=== PATIENT | male | born 1940 | race Caucasian/White ===

== ENCOUNTER 2023-03-02 13:25 | Emergency (ER) | payer MEDICARE, OTHER ==
[2023-03-02 13:48] VITALS: BP 149/75; TEMP 97.9
[2023-03-02] MEDS ORDERED: Haldol 5 MG IV ONE (14:06)
[2023-03-02] MEDS ORDERED: Haldol 5 MG ONE (14:15)
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
[2023-03-02 14:23] LABS: Appearance Clear (Clear); Bacteria None Seen /HPF (None Seen); Bilirubin Negative (Negative); Blood Negative (Negative); Epithelial Cells None Seen /HPF (None Seen); Glucose, Urine Negative (Negative); Hyaline Casts NONE SEEN /LPF (0-2); Ketones Negative (Negative); Leukocyte Esterase Trace (Negative); Nitrite Negative (Negative); Protein,Urine Dip Negative (Negative); RBC 0-2 /HPF (0-5); WBC 0-2 /HPF (0-5)
[2023-03-02 14:24] LABS: ADD URINE CULTURE? NO (NO)
[2023-03-02 14:25] LABS: Absolute Neutrophil Ct (ANC) 4.77 x10^3/uL (1.4-6.9); BASOPHIL % 0.9 % (0.0-0.4); Basophil (Absolute #) 0.07 x10^3/uL (0-0.4); Eosinophil % 1.5 % (0.00-5.0); Eosinophil (Absolute #) 0.11 x10^3/uL (0-0.5); Hematocrit 47.5 % (42-50); Hemoglobin 15.3 g/dL (12.5-18.0); IMMATURE GRAN # 0.02 x10^3u/L (0.00-0.03); IMMATURE GRAN % 0.3 % (0.00-0.4); Lymphocyte (Absolute #) 1.73 x10^3/uL (1.0-4.6); Mean Cell Volume 97.7 fL (78-100); Mean Corpuscular Hemoglobin 31.5 pg (26-32); Mean Corpuscular Hgb Concent. 32.2 g/dL (32-36); Mean Platelet Volume 10.2 fL (7.5-11.0); Monocyte (Absolute #) 0.82 x10^3/uL (0.0-1.3); Monocytes % 10.9 % (0.0-12.0); Neutrophil % 63.4 % (36.0-66.0); Platelet Count 207 x10^3/uL (150-450); Red Blood Count 4.86 x10^6/uL (4.1-5.6); Red Cell Distribution Width 13.4 % (11.5-14.0); White Blood Count 7.5 x10^3/uL (4.0-10.5)
[2023-03-02 14:36] LABS: ANION GAP 10.1 MEQ/L (5-15); Calcium 9.1 mg/dL (8.4-10.2); Creatinine 1 0.88 mg/dL (0.66-1.25); EST GLOMERULAR FILTRATION RATE 86.4 ML/MIN; Potassium 3.7 mmol/L (3.5-5.1); Total Protein 7.6 g/dL (6.3-8.2)
--- NOTE | 2023-03-02 15:33 | XRAY ---
CLINICAL HISTORY:[facility] COMPARISON:06/20/2022 TECHNIQUE:CT scan of the brain without contrast administration. Images were acquired in axial cuts with coronal and sagittal reformation. FINDINGS: Age-matched central and cortical involutional brain changes as evident by prominent cortical sulci, widened basal cisterns, and mild ventricular dilatation. Deep white matter chronic ischemia as evident by exaggerated white matter hypodensity. No CT evidence of acute infarction. No shift of the midline structures. No evidence of intra or extra axial recent hematoma. Normal appearance of the posterior fossa structures including the brainstem and cerebellum. Bone window settings showed no evidence of fractures or destructive lesions. IMPRESSION: 1. No evidence of acute infarction or recent hemorrhage. 2. Age-matched involutional brain changes and deep white matter chronic microvascular ischemia. Stable findings when compared with prior study. Electronically Signed by: El Hendricks MD. (03/02/2023 15:28:31 EST)
[2023-03-02 16:09] VITALS: PULSE 71; RESP 16
[2023-03-02 16:18] VITALS: O2SAT 95
== END 2023-03-02 17:13 | disposition home or self-care (01) ==
LOC: ED 13:25
DX: G30.1 Alzheimer's disease with late onset (principal); F02.B11 Dementia in other diseases classified elsewhere, moderate, with agitation; E78.5 Hyperlipidemia, unspecified; I10 Essential (primary) hypertension; Z79.899 Other long term (current) drug therapy
CPT/HCPCS: 36415; 70450; 80053; 81001; 83880; 85025; 96374; 99283; J1630

== ENCOUNTER 2023-06-08 14:28 | Emergency (ER) | payer MEDICARE, OTHER ==
--- NOTE | 2023-06-08 14:33 | ERPHSYRPT ---
- History of Present Illness Time Seen by Provider: 06/08/23 14:33 Source: patient, family, EMS Exam Limitations: clinical condition Physician History: This is an 82-year-old white male patient who presents to the emergency department by the operations plant attendant service for low room air oxygen saturation level 90%. The paramedics were called out to the house for lift assistance. The patient's spouse, called the paramedics out for herself. However after they assisted in lifting, she was concerned that the patient was having shortness of breath. He does use oxygen. He has significant dementia and does not always wear his oxygen. The paramedics brought the patient to the emergency department for evaluation management of low oxygen saturation levels. On arrival to the emergency department, the room air oxygen saturation level was 93%. The patient did not appear to be in any distress. He does not know why he is here in the emergency department. He has no complaints of shortness of breath or pain. Patient has a history of hypertension, hyperlipidemia and dementia. Additional, independent history was obtained from the paramedics as well as patient's family member. Timing/Duration: today Severity: mild Associated Symptoms: denies symptoms Allergies/Adverse Reactions: No Known Drug Allergies Allergy (Unverified 03/02/23 13:48) Home Medications: Amlodipine Besylate 10 mg PO DAILY 03/02/23 [History] Cyanocobalamin (Vitamin B-12) [Vitamin B-12] 2,500 mcg SL DAILY 03/02/23 [History] Donepezil HCl [Aricept] 5 mg PO DAILY 03/02/23 [History] Lisinopril 10 mg [Zestril 10 MG] 10 mg PO DAILY 03/02/23 [History] Melatonin 10 mg PO HS 03/02/23 [History] Memantine HCl 10 mg PO BID 03/02/23 [History] PARoxetine HCL [Paxil] 20 mg PO DAILY 03/02/23 [History] Docusate Sodium 100 mg [Docusate Sodium 100 MG] 100 mg PO BID 06/08/23 [History] risperiDONE [Risperidone] 1 mg PO BID 06/08/23 [History] Hx Tetanus, Diphtheria Vaccination/Date Given: (unknown) Hx Influenza Vaccination/Date Given: (unknown) Travel Risk - International Travel Have you traveled outside of the country in past 3 weeks: No - Emerging Infectious Disease Are you exhibiting symptoms associated with any current EIDs: No - Review of Systems Constitutional: No Symptoms Eyes: No Symptoms Ears, Nose, & Throat: No Symptoms Respiratory: No Symptoms Cardiac: No Symptoms Abdominal/Gastrointestinal: No Symptoms Genitourinary Symptoms: No Symptoms Musculoskeletal: No Symptoms Skin: No Symptoms Neurological: No Symptoms Psychological: No Symptoms Endocrine: No Symptoms Hematologic/Lymphatic: No Symptoms Immunological/Allergic: No Symptoms All Other Systems: Reviewed and Negative - Past Medical History Pertinent Past Medical History: Yes Neurological History: Dementia Cardiac History: High Cholesterol, Hypertension Psycho-Social History: Depression - Past Surgical History Past Surgical History: Yes Gastrointestinal: Cholecystectomy Other Surgical History: kidney stone removal - Social History Smoking Status: Never smoker Exposure to second hand smoke: No Drug Use: none Patient Lives Alone: No - Nursing Vital Signs Nursing Vital Signs: Initial Vital Signs Blood Pressure 154/65 06/08/23 14:30 O2 Sat by Pulse Oximetry 93 L 06/08/23 14:30 Pain Scale Pain Intensity 0 - Physical Exam General Appearance: no apparent distress, alert Eye Exam: PERRL/EOMI, eyes nml inspection Ears, Nose, Throat Exam: normal ENT inspection, moist mucous membranes Neck Exam: normal inspection, non-tender, supple, full range of motion Respiratory Exam: normal breath sounds, lungs clear, airway intact, No chest tenderness, No respiratory distress Cardiovascular Exam: regular rate/rhythm, normal heart sounds, normal peripheral pulses Gastrointestinal/Abdomen Exam: soft, normal bowel sounds, No tenderness Rectal Exam: not done Back Exam: normal inspection, normal range of motion, No CVA tenderness, No vertebral tenderness Extremity Exam: normal inspection, normal range of motion, pelvis stable Neurologic Exam: alert, oriented x 3 (Patient is oriented to self. He is not oriented to location or time), cooperative, financial institution treasurer II-XII nml as tested, normal mood/affect, nml cerebellar function, nml station & gait Skin Exam: normal color, warm, dry Lymphatic Exam: adenopathy SpO2 Interpretation: normal O2 Delivery: Room Air - Course Nursing assessment & vital signs reviewed: Yes EKG Interpreted by Me: RATE (71), Sinus Rhythm, NORMAL AXIS, NORMAL INTERVALS, NORMAL QRS, NORMAL ST-T, Other (No acute ischemic changes on today's twelve-lead EKG.) Ordered Tests: Active Orders 24 hr Category Date Time Status Marketing Coordinator STAT Care 06/08/23 14:34 Active EKG-ER Only STAT Care 06/08/23 14:33 Active IV Insertion STAT Care 06/08/23 14:33 Active HEAD WITHOUT CONTRAST [CT] Stat Exams 06/08/23 16:55 Taken BLOOD CULTURE Stat Lab 06/08/23 15:17 Received CBC W DIFF Stat Lab 06/08/23 15:00 Completed CMP Stat Lab 06/08/23 15:00 Completed NT PRO BNPII Stat Lab 06/08/23 15:00 Completed TROPONIN Q4H Lab 06/08/23 15:00 Completed TROPONIN Q4H Lab 06/08/23 18:45 Completed TROPONIN Q4H Lab 06/08/23 22:45 Ordered Medication Summary Discontinued Medications Generic Name Dose Route Start Last Admin Trade Name Freq PRN Reason Stop Dose Admin Acetaminophen 650 mg 06/08/23 16:47 06/08/23 16:55 Acetaminophen 325 Mg Tablet PO 06/08/23 16:48 650 mg STAT ONE Administration Acetaminophen Confirm 06/08/23 16:52 Acetaminophen 325 Mg Tablet Administered 06/08/23 16:53 Dose 650 mg .ROUTE .STK-MED ONE Potassium Chloride 20 meq 06/08/23 15:55 06/08/23 16:15 Potassium Chloride Tab 10 Meq Tab PO 06/08/23 15:56 20 meq STAT ONE Administration Potassium Chloride Confirm 06/08/23 16:05 Potassium Chloride Tab 10 Meq Tab Administered 06/08/23 16:06 Dose 20 meq .ROUTE .STK-MED ONE Lab/Rad Data: Laboratory Result Diagrams 06/08/23 15:00 06/08/23 15:00 Laboratory Results 06/08/23 06/08/23 06/08/23 Range/Units 18:45 15:20 15:00 WBC (4.0-10.5) x10^3/uL RBC (4.1-5.6) x10^6/uL Hgb (12.5-18.0) g/dL Hct (42-50) % MCV (78-100) fL MCH (26-32) pg MCHC (32-36) g/dL RDW (11.5-14.0) % Plt Count (150-450) x10^3/uL MPV (7.5-11.0) fL Gran % (36.0-66.0) % Immature Gran % (Auto) (0.00-0.4) % Nucleat RBC Rel Count (0.00-0.1) % Eos # (Auto) (0-0.5) x10^3/uL Immature Gran # (Auto) (0.00-0.03) x10^3u/L Absolute Lymphs (auto) (1.0-4.6) x10^3/uL Absolute Monos (auto) (0.0-1.3) x10^3/uL Absolute Nucleated RBC (0.00-0.01) x10^3u/L Lymphocytes % (24.0-44.0) % Monocytes % (0.0-12.0) % Eosinophils % (0.00-5.0) % Basophils % (0.0-0.4) % Absolute Granulocytes (1.4-6.9) x10^3/uL Basophils # (0-0.4) x10^3/uL Sodium (135-145) mmol/L Potassium (3.5-5.1) mmol/L Chloride (98-107) mmol/L Carbon Dioxide (22-30) mmol/L Anion Gap (5-15) MEQ/L BUN (9-20) mg/dL Creatinine (0.66-1.25) mg/dL Estimated GFR ML/MIN Glucose (74-106) mg/dL Calcium (8.4-10.2) mg/dL Total Bilirubin (0.2-1.3) mg/dL AST (17-59) U/L ALT (0-50) U/L Alkaline Phosphatase (38-126) U/L Troponin I 0.014 < 0.012 (0.000-0.033) ng/mL NT-Pro-B Natriuret Pep (<300) pg/mL Serum Total Protein (6.3-8.2) g/dL Albumin (3.5-5.0) g/dL Influenza Type A Ag NEGATIVE (NEGATIVE) Influenza Type B Ag NEGATIVE (NEGATIVE) RSV (PCR) NEGATIVE (NEGATIVE) SARS-CoV-2 (PCR) NEGATIVE (NEGATIVE) 06/08/23 06/08/23 Range/Units 15:00 15:00 WBC 10.3 (4.0-10.5) x10^3/uL RBC 4.72 (4.1-5.6) x10^6/uL Hgb 14.8 (12.5-18.0) g/dL Hct 44.8 (42-50) % MCV 94.9 (78-100) fL MCH 31.4 (26-32) pg MCHC 33.0 (32-36) g/dL RDW 13.2 (11.5-14.0) % Plt Count 202 (150-450) x10^3/uL MPV 10.6 (7.5-11.0) fL Gran % 74.0 H (36.0-66.0) % Immature Gran % (Auto) 0.3 (0.00-0.4) % Nucleat RBC Rel Count 0.0 (0.00-0.1) % Eos # (Auto) 0.06 (0-0.5) x10^3/uL Immature Gran # (Auto) 0.03 (0.00-0.03) x10^3u/L Absolute Lymphs (auto) 1.47 (1.0-4.6) x10^3/uL Absolute Monos (auto) 1.06 (0.0-1.3) x10^3/uL Absolute Nucleated RBC 0.00 (0.00-0.01) x10^3u/L Lymphocytes % 14.3 L (24.0-44.0) % Monocytes % 10.3 (0.0-12.0) % Eosinophils % 0.6 (0.00-5.0) % Basophils % 0.5 (0.0-0.4) % Absolute Granulocytes 7.58 H (1.4-6.9) x10^3/uL Basophils # 0.05 (0-0.4) x10^3/uL Sodium 142 (135-145) mmol/L Potassium 3.0 L* (3.5-5.1) mmol/L Chloride 102 (98-107) mmol/L Carbon Dioxide 33 H (22-30) mmol/L Anion Gap 10.4 (5-15) MEQ/L BUN 13 (9-20) mg/dL Creatinine 1.05 (0.66-1.25) mg/dL Estimated GFR 71.3 ML/MIN Glucose 95 (74-106) mg/dL Calcium 9.3 (8.4-10.2) mg/dL Total Bilirubin 0.70 (0.2-1.3) mg/dL AST 21 (17-59) U/L ALT 12 (0-50) U/L Alkaline Phosphatase 88 (38-126) U/L Troponin I (0.000-0.033) ng/mL NT-Pro-B Natriuret Pep 128 (<300) pg/mL Serum Total Protein 7.7 (6.3-8.2) g/dL Albumin 3.9 (3.5-5.0) g/dL Influenza Type A Ag (NEGATIVE) Influenza Type B Ag (NEGATIVE) RSV (PCR) (NEGATIVE) SARS-CoV-2 (PCR) (NEGATIVE) - Progress Progress: unchanged, re-examined Progress Note: 06/08/23 17:37 Medical decision making and my assignment of moderate complexity to the patient's medical issue today is based on review of the patient's past medical history, review patient's medication list, review the patient drug allergy list, history present illness and physical findings on examination. The workup includes placement of intravenous line, CBC, CMP, twelve-lead EKG, BNP, troponin level. Differential diagnosis includes pneumonia, myocardial infarction, CHF, COPD. Patient was wanting to leave. However, the patient does have dementia, patient's family member is here. Although the patient stated he has no complaints, the patient's family members concerned about the patient's headache that he has been intermittently complaining about since prior to this evaluation. She is not aware of any head injury. Will order CT scan of the head without contrast. I interpreted the patient's laboratory data results. Patient does have a low potassium level. We will provide him with 20 mEq of potassium orally at this time. 06/08/23 19:17 CT scan of the head without contrast was interpreted by the radiologist and I reviewed the impression. Impression states when compared to CT scan of the head study without contrast dated 03/02/2023, there is no evidence of an acute infarction. There are microvascular ischemic changes present. There are age- appropriate global brain atrophic changes Counseled pt/family regarding: lab results, diagnosis, need for follow-up, rad results Medical Desision Making - Independent Historian Additional History obtained from: Family - Diagnostic Testing Diagnostic test were ordered, analyzed, and reviewed by me: Yes Radiological Interpretation: Reviewed by me, Teleradiologist Report - Risk of complications Low Risk: Low risk of morbidity from additional dx testing or treatment - Departure Departure Disposition: Home Clinical Impression: Hypokalemia, Dementia, Headache Condition: Stable Critical Care Time: No Referrals: DALIA ALFRED [Primary Care Provider] - Follow up/PCP as directed Additional Instructions: Drink plenty of fluids. Take your medication as prescribed. Call your primary care provider on 06/10/2023, to make arrangements for follow-up appointm ent to be seen in the next 3 to 5 days. Prescriptions: Potassium Chloride Tab* [Klor Con] 10 meq PO BID #4 tab
[2023-06-08 15:25] LABS: Absolute Neutrophil Ct (ANC) 7.58 x10^3/uL (1.4-6.9); BASOPHIL % 0.5 % (0.0-0.4); Basophil (Absolute #) 0.05 x10^3/uL (0-0.4); Eosinophil % 0.6 % (0.00-5.0); Eosinophil (Absolute #) 0.06 x10^3/uL (0-0.5); Hematocrit 44.8 % (42-50); Hemoglobin 14.8 g/dL (12.5-18.0); IMMATURE GRAN # 0.03 x10^3u/L (0.00-0.03); IMMATURE GRAN % 0.3 % (0.00-0.4); Lymphocyte (Absolute #) 1.47 x10^3/uL (1.0-4.6); Lymphocytes % 14.3 % (24.0-44.0); Mean Cell Volume 94.9 fL (78-100); Mean Corpuscular Hemoglobin 31.4 pg (26-32); Mean Platelet Volume 10.6 fL (7.5-11.0); Monocyte (Absolute #) 1.06 x10^3/uL (0.0-1.3); Monocytes % 10.3 % (0.0-12.0); Platelet Count 202 x10^3/uL (150-450); Red Blood Count 4.72 x10^6/uL (4.1-5.6); Red Cell Distribution Width 13.2 % (11.5-14.0); White Blood Count 10.3 x10^3/uL (4.0-10.5)
[2023-06-08 15:44] VITALS: O2SAT 91
[2023-06-08 15:47] LABS: ALBUMIN 3.9 g/dL (3.5-5.0); ANION GAP 10.4 MEQ/L (5-15); BILIRUBIN,TOTAL 0.7 mg/dL (0.2-1.3); Calcium 9.3 mg/dL (8.4-10.2); Creatinine 1 1.05 mg/dL (0.66-1.25); EST GLOMERULAR FILTRATION RATE 71.3 ML/MIN; Total Protein 7.7 g/dL (6.3-8.2)
[2023-06-08] MEDS ORDERED: Klor Con ONE (16:05)
[2023-06-08] MEDS: Klor Con PO ONE (16:15)
[2023-06-08 16:19] LABS: INFLUENZA A NEGATIVE (NEGATIVE); INFLUENZA B NEGATIVE (NEGATIVE); RESPIRATORY SYNCTIAL VIRUS NEGATIVE (NEGATIVE); SARS-CoV-2 Xpert Express NEGATIVE (NEGATIVE)
[2023-06-08] MEDS ORDERED: TYLENOL 325 MG ONE (16:52)
[2023-06-08] MEDS: TYLENOL 325 MG PO ONE (16:55)
[2023-06-08 19:08] VITALS: BP 129/99; PULSE 99; RESP 29
--- NOTE | 2023-06-10 09:12 | XRAY ---
CLINICAL HISTORY: headache for 2 days COMPARISON: Compared with prior CT head and brain dated 03/02/2023. TECHNIQUE: CT scan of the brain without contrast administration. Images were acquired in axial cuts with coronal and sagittal reformation. One of the following dose reduction techniques were utilized for this exam: Automated exposure control, adjustment of the mA and/or kV according to patient size, and use of iterative reconstruction. FINDINGS: No established territorial infarction identified. Bilateral increased cerebral white matter hypodensity with multiple ill-defined hypodense areas noted in the subcortical and periventricular white matter suggesting microvascular ischemic changes. 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 Prominent ventricles and extra-axial CSF spaces noted finding consistent with age appropriate global brain involutional changes/atrophic brain changes. No evidence of intracerebral hemorrhage. No extra axial hematoma. No CT evidence of acute infarction. No other focal parenchymal abnormalities are demonstrated. Flower-white matter differentiation is maintained. No midline shifts or deformity. Normal CT appearance of the posterior fossa structures namely the cerebellar hemispheres, brainstem and cerebellar peduncles. The IACs are unremarkable. The cerebello-pontine angles are clear. The pituitary gland, the pineal gland, the optic chiasm is unremarkable. Atherosclerotic calcific disease is seen in the internal carotid arteries. The osseous structures in the skull base are unremarkable. The scanned paranasal sinuses appear unremarkable. IMPRESSION: 1. In comparison with the prior CT head and brain there is no evidence of acute territorial infarction seen in the present study. 2. Microvascular ischemic changes. 3. Prominent ventricles and extra-axial CSF spaces noted finding consistent with age appropriate global brain involutional changes/atrophic brain changes. 4. If there is high suspicion of acute stroke further evaluation with MRI with diffusion-weighted sequences is recommended. Electronically Signed by: El Hendricks MD. (06/08/2023 18:26:47 EDT)
== END 2023-06-08 19:17 | disposition home or self-care (01) ==
LOC: ED 14:28
DX: E87.6 Hypokalemia (principal); F03.90 Unspecified dementia, unspecified severity, without behavioral disturbance, psychotic disturbance, mood disturbance, and anxiety; R51.9 Headache, unspecified; R06.02 Shortness of breath; I10 Essential (primary) hypertension; E78.5 Hyperlipidemia, unspecified; Z79.899 Other long term (current) drug therapy
CPT/HCPCS: 0241U; 36415; 70450; 80053; 83880; 84484; 85025; 87040; 93005; 93041; 99284; A9270-GY